=== PATIENT | male | born 1980 | race Caucasian/White ===

== ENCOUNTER 2023-02-21 12:31 | Emergency (ER) | payer OTHER, SELFPAY ==
--- NOTE | ~2023-02-21 | US_ITS ---
EXAMINATION: US scrotum doppler DATE: 02/21/2023 13:58 INDICATION: Right testicular pain. TECHNIQUE: Grayscale and Doppler ultrasound images of the testes were obtained. COMPARISON: None. FINDINGS: The right testis measures 3.8 x 2.6 x 3.4 cm. The left testis measures 4.0 x 2.8 x 2.3 cm. There is normal vascular flow to both testes. The right epididymis is normal with normal vascular maurizio w. The left epididymis is normal with normal vascular flow. There is no varicocele or hydrocele. IMPRESSION: 1. Normal testes. Reviewed, dictated and finalized at location A. IMPRESSION: 1. Normal testes.
--- NOTE | ~2023-02-21 | CT_ITS ---
EXAMINATION: CT abdomen pelvis wo con DATE: 02/21/2023 14:49 INDICATION: Right abdominal pain. Nausea and vomiting. TECHNIQUE: Computed tomography (CT) of the abdomen and pelvis was performed without intravenous contr ast. Automated exposure control and iterative reconstruction technique were employed. The dose-length product was 361.35 mGy-cm. COMPARISON: None. FINDINGS: The visualized portions of the lung bases demonstrate mild atelectasis. No pleural effusion . The heart size is normal. No pericardial effusion. The liver, gallbladder, spleen, pancreas, adrena l glands, and kidneys are normal. There is no urolithiasis. There are no dilated loops of bowel. The appendix is normal. There is prominent fat in the inguinal canals that may be hernias. There are no p athologically enlarged lymph nodes. There is no free intraperitoneal fluid. There is moderate lumbar spondylosis. There is a chronic compression fracture of T11. IMPRESSION: 1. Prominent fat in the inguinal canals that may be hernias. Reviewed, dictated and finalized at location A.
[2023-02-21 12:32] VITALS: BP 126/79; PULSE 82; RESP 16; TEMP 36.9; O2SAT 98
[2023-02-21 13:17] LABS: Basophils Percent Auto 0.7 % (0.2-1.2); Eosinophils Absolute Auto 0.1 K/mm3 (0-0.3); Eosinophils Percent Auto 1.7 % (0-4.4); Hematocrit 45.4 % (42.0-52.0); Hemoglobin 15.7 g/dL (14.0-18.0); Immature Granulocyte Absolute 0.02 K/mm3 (0.00-0.031); Immature Granulocyte Percent A 0.3 % (0-0.5); Lymphocytes Absolute Auto 2.02 K/mm3 (0.9-3.2); Lymphocytes Percent Auto 35.3 % (18.3-44.2); Mean Corpuscular HGB Conc 34.6 g/dl (32-36); Mean Corpuscular Hemoglobin 31.3 pg (26-34); Mean Corpuscular Volume 90.4 fl (80-100); Mean Platelet Volume 8.8 fl (7.4-10.4); Monocytes Absolute Auto 0.3 K/mm3 (0.1-0.6); Monocytes Percent Auto 5.6 % (2.6-8.5); Neutrophils Absolute Auto 3.2 K/mm3 (1.3-6.7); Neutrophils Percent Auto 56.4 % (45.5-73.1); Platelet Count Result 240 k/mm3 (150-375); Red Blood Count 5.02 M/mm3 (4.6-6.20); Red Cell Distribution Width 12.5 % (11.5-14.5); White Blood Count 5.7 K/mm3 (4.5-10.0)
[2023-02-21 13:31] LABS: Alanine Aminotransferase 21 U/L (6-50); Albumin Level 4.5 g/dL (3.5-5.1); Alkaline Phosphatase 45 U/L (38-126); Anion Gap 7 mmol/L (8-16); Aspartate Amino Transferase 28 U/L (17-59); Bilirubin,Total 0.4 mg/dL (0.2-1.3); Blood Urea Nitrogen 10 mg/dL (9-20); Carbon Dioxide 28 mmol/L (22-30); Chloride 104 mmol/L (98-107); Estimated CRCL calculation 78 ml/min; Estimated Glomerular Filt Rate > 60; Glucose 124 mg/dL (65-110); Lipase 77 U/L (23-300); Potassium 4.1 mmol/L (3.4-5.0); Sodium 139 mmol/L (137-145)
[2023-02-21 13:35] VITALS: BP 126/92; O2SAT 99
[2023-02-21 13:36] VITALS: O2SAT 98
--- NOTE | 2023-02-21 13:42 | ED.ABDPAIN ---
HPI - Abdominal Pain General Chief Complaint: Abdominal Pain Stated Complaint: abdominal pain-testicle pain Time Seen by Provider: 02/21/23 13:13 History of Present Illness HPI narrative: Pt presents with right testicular pain radiating into back on right for 5 days. Pt denies urinary symptoms or discharge. Pt had CT at [facility] with no definitive diagnosis and UA at PCP office but no ultrasound of testicle. Related Data Allergies Allergy/AdvReac Type Severity Reaction Status Date / Time codeine Allergy Hives Verified 02/21/23 13:10 Review of Systems Review of Systems: All systems reviewed & are unremarkable except as noted in HPI and below Exam Const: General: healthy appearing Nutritional Appearance: well nourished Orientation/consciousness: patient oriented x3 Limitations: no limitations Eyes: Conjunctivae: conjunctivae normal EOM: EOMs intact bilaterally Neck: Neck: normal visual inspection Chest: Chest palpation & inspection: normal inspection of the chest Resp: Effort & Inspection: normal respiratory effort Auscultation: clear to auscultation bilaterally Cardio: Rate: regular rate Rhythm: regular rhythm GI: GI Palp: Yes Soft to palpation Auscultation: normal bowel sounds : Penis: Yes normal penis Scrotum: scrotal swelling on the right (fullness in right inguinal canal into scrotum) Testes: testicular tenderness Skin: General skin exam: normal color Rashes: no rashes Wounds: no wounds Neuro: General: patient oriented x3, moves all extremities and no focal motor deficits Cranial nerves: Yes Nystagmus not present Speech: normal speech Extrem: General: normal to inspection and no clubbing, cyanosis or edema Psych: Mental Status: mental status grossly normal Affect: normal affect Attitude: cooperative Course Vital Signs Vital signs: Vital Signs Temperature 98.5 F 02/21/23 12:32 Pulse Rate 82 02/21/23 12:32 Respiratory Rate 16 02/21/23 12:32 Blood Pressure 126/79 02/21/23 12:32 Pulse Oximetry 98 02/21/23 12:32 Oxygen Delivery Room Air 02/21/23 12:32 Temperature 98.5 F 02/21/23 12:32 Pulse Rate 63 02/21/23 16:45 Respiratory Rate 16 02/21/23 16:45 Blood Pressure 122/94 H 02/21/23 16:45 Pulse Oximetry 98 02/21/23 16:45 Oxygen Delivery Room Air 02/21/23 12:32 MDM - Abdominal Pain MDM Narrative Medical decision making narrative: Pt has pain in right testicle and right flank for 5 days. labs fine, ua neg, testicular sono normal CT abd/pelvis shows some fat in inguinal canal likely hernia Lab Data Attestation: I reviewed the patient's lab results. 02/21/23 13:11 02/21/23 13:11 Labs: Lab Results 02/21/23 02/21/23 Range/Units 13:11 15:34 WBC 5.7 (4.5-10.0) K/mm3 RBC 5.02 (4.6-6.20) M/mm3 Hgb 15.7 (14.0-18.0) g/dL Hct 45.4 (42.0-52.0) % MCV 90.4 (80-100) fl MCH 31.3 (26-34) pg MCHC 34.6 (32-36) g/dl RDW 12.5 (11.5-14.5) % Plt Count 240 (150-375) k/mm3 MPV 8.8 (7.4-10.4) fl Immature Gran % (Auto) 0.3 (0-0.5) % Neut % (Auto) 56.4 (45.5-73.1) % Lymph % (Auto) 35.3 (18.3-44.2) % Edwards % (Auto) 5.6 (2.6-8.5) % Eos % (Auto) 1.7 (0-4.4) % Baso % (Auto) 0.7 (0.2-1.2) % Lymph # (Auto) 2.02 (0.9-3.2) K/mm3 Edwards # (Auto) 0.3 (0.1-0.6) K/mm3 Eos # (Auto) 0.1 (0-0.3) K/mm3 Baso # (Auto) 0.0 (0.0-0.1) K/mm3 Abs Immat Gran (auto) 0.02 (0.00-0.031) K/mm3 Absolute Neuts (auto) 3.2 (1.3-6.7) K/mm3 Absolute Nucleated RBC 0.0 (0.0-0.012) K/mm3 Nucleated RBC % 0.0 (0.0-0.2) % Sodium 139 (137-145) mmol/L Potassium 4.1 (3.4-5.0) mmol/L Chloride 104 (98-107) mmol/L Carbon Dioxide 28 (22-30) mmol/L Anion Gap 7 L (8-16) mmol/L BUN 10 (9-20) mg/dL Creatinine 1.00 (0.7-1.3) mg/dL Estim Creat Clear Calc 78 ml/min Estimated GFR > 60 (59 - ) Glucose 124 H (65-110) mg/dL Calcium 9.0 (8.4-10.2
[2023-02-21] MEDS: ONDANSETRON INJ 4 MG/2 ML VIAL IV PUSH (13:52)
[2023-02-21 13:54] VITALS: O2SAT 99
[2023-02-21] MEDS: fentaNYL CITRATE INJ (*CRX) 100 MCG/2 ML VIAL 50 MCG IV PUSH (13:54)
[2023-02-21 15:41] LABS: Appearance Urine Clear (Clear); Bilirubin Urine Negative (Negative); Blood Urine Negative (Negative); Color Urine Yellow (Yellow); Glucose Urine UA Negative (Negative); Ketones Urine Negative (Negative); Leukocyte Esterase Ur Negative LEU/UL (Negative); Nitrate Urine Negative (Negative); Protein Urine Negative (Negative); Specific Grav Ur 1.013 (1.001-1.035); pH Urine 6.5 (5.0-9.0)
[2023-02-21 15:47] LABS: Add Urine Microscopic? NO
[2023-02-21 16:45] VITALS: BP 122/94; PULSE 63; RESP 16; O2SAT 98
== END 2023-02-21 16:46 | disposition home or self-care (01) ==
PROVIDERS: Emergency Provider Emergency Medicine; PCP Internal Medicine Infectious Disease
DX: K40.90 Unilateral inguinal hernia, without obstruction or gangrene, not specified as recurrent (principal)
CPT/HCPCS: 36415; 74176; 76870; 80053; 81003; 83690; 85025; 93976; 96374; 96375; 99284; J2405; J3010

== ENCOUNTER 2023-03-08 02:21 | Day surgery (SDC) | payer OTHER, SELFPAY ==
[2023-02-27 12:43] VITALS: BMI 26.2
--- NOTE | 2023-02-27 12:45 | PC.NURSE ---
Report to the Outpatient Waiting Room, entrance under the green pavilion located off [facility], at time _0815_ on date _[id number]_. Planned Procedure Time: _1015_. Time changes happen often and if your time is changed the preop area will call you the afternoon before. - You and your visitor will be asked to self-screen and do not enter if you have any COVID symptoms. - A mask is optional within the hospital at this time. Patients may have clear liquids (water, carbonated beverages, clear teas, apple juice) until 3 hours prior to surgery with a maximum of 20 ounces. - No food from midnight until time of surgery Take the following medications with a SIP of water the morning of surgery: ___Cymbalta, Buspirone and Gabapentin DO NOT STOP ANY OF YOUR OTHER PRESCRIPTION MEDICATIONS PRIOR TO SURGERY ?EXCEPT THE FOLLOWING Medications to discontinue per physician None Date to take last dose Please no make-up, nail korean, hairspray, perfume, deodorant, or body powder the day of surgery. No jewelry (including any body piercings) or valuables the day of surgery, leave them at home. Please take a shower or bath the night before, or the morning of, surgery with an antibacterial soap. Wear comfortable, loose fitting clothing. - Jewelry must be removed prior to entering the operating room. Rings and piercings that are not removed may be cut off. - The hospital will not accept responsibility for valuables. - Please leave all valuables, including medications, at home the day of surgery. If you are going home after surgery, a licensed truck driver teamster must drive you home. - NO public transportation without another adult if you receive anesthesia. - We recommend that an adult stay with you for 24 hours following discharge. - We also recommend that you do not drive, make important decision, drink alcoholic beverages, or take any drugs that were not prescribed by your health care provider for at least 24 hours after your discharge time. Follow any additional instructions given to you from your surgeon. If you or anyone in your household have experienced Covid symptoms in the past week, please notify your surgeon or the nurse liaison at the phone number below for possible testing. Telephone instructions given to __Patient___and asked if any additional questions and then verbalized understanding. Patient advised to call surgeon office or pre surgery nurse liaison [phone] if any additional questions.
[2023-03-08] MEDS: ACETAMINOPHEN 500 MG TABLET 1000 MG PO (08:22)
[2023-03-08 08:32] VITALS: BP 123/78; PULSE 67; RESP 16; TEMP 36.6; O2SAT 100
[2023-03-08] MEDS: LACTATED RINGERS 1,000 ML 30 ML IV CONT (08:52)
[2023-03-08] MEDS: KETOROLAC 15 MG/ML VIAL (*BKC) IV PUSH (08:54)
== END 2023-03-08 11:37 | disposition home or self-care (01) ==
PROVIDERS: PCP Nurse Practitioner Family; Visit Provider Surgery
DX: K40.90 Unilateral inguinal hernia, without obstruction or gangrene, not specified as recurrent (principal); I10 Essential (primary) hypertension; Z87.891 Personal history of nicotine dependence
CPT/HCPCS: 99213; A9270; G0463; J1885; J7120

== ENCOUNTER 2023-03-15 00:58 | Day surgery (SDC) | payer OTHER, SELFPAY ==
[2023-03-08 14:57] VITALS: BMI 25.8
--- NOTE | 2023-03-08 14:58 | PC.NURSE ---
Report to the Outpatient Waiting Room, entrance under the green pavilion located off [facility], at time 0800 on date 03/15/23. Planned Procedure Time: 1000. Time changes happen often and if your time is changed the preop area will call you the afternoon before. - You and your visitor will be asked to self-screen and do not enter if you have any COVID symptoms. - A mask is optional within the hospital at this time. Patients may have clear liquids (water, carbonated beverages, clear teas, apple juice) until 3 hours prior to surgery with a maximum of 20 ounces. - No food from midnight until time of surgery Take the following medications with a SIP of water the morning of surgery: BUSPIRONE, DULOXETINE, GABAPENTIN DO NOT STOP ANY OF YOUR OTHER PRESCRIPTION MEDICATIONS PRIOR TO SURGERY ?EXCEPT THE FOLLOWING Medications to discontinue per physician: N/A Date to take last dose: N/A Please no make-up, nail setswana, hairspray, perfume, deodorant, or body powder the day of surgery. No jewelry (including any body piercings) or valuables the day of surgery, leave them at home. Please take a shower or bath the night before, or the morning of, surgery with an antibacterial soap (HIBICLENS). Wear comfortable, loose fitting clothing. - Jewelry must be removed prior to entering the operating room. Rings and piercings that are not removed may be cut off. - The hospital will not accept responsibility for valuables. - Please leave all valuables, including medications, at home the day of surgery. If you are going home after surgery, a licensed charter and tour bus driver must drive you home. - NO public transportation without another adult if you receive anesthesia. - We recommend that an adult stay with you for 24 hours following discharge. - We also recommend that you do not drive, make important decision, drink alcoholic beverages, or take any drugs that were not prescribed by your health care provider for at least 24 hours after your discharge time. Follow any additional instructions given to you from your surgeon. If you or anyone in your household have experienced Covid symptoms in the past week, please notify your surgeon or the nurse liaison at the phone number below for possible testing. Telephone instructions given to WILFREDO CATALAN and asked if any additional questions and then verbalized understanding. Patient advised to call surgeon office or pre surgery nurse liaison [phone] if any additional questions.
[2023-03-15] VITALS (10 sets, daily range): BP systolic 107–138; BP diastolic 63–94; PULSE 64–85; RESP 10–16; TEMP 36.1–36.7; O2SAT 96–100
[2023-03-15] MEDS: ACETAMINOPHEN 500 MG TABLET 1000 MG PO (08:18)
[2023-03-15] MEDS: LACTATED RINGERS 1,000 ML 30 ML IV CONT ×2 (08:30→11:53)
[2023-03-15] MEDS: KETOROLAC 15 MG/ML VIAL (*BKC) IV PUSH ×2 (08:31→11:24)
--- NOTE | 2023-03-15 09:08 | WPDANESEPPF ---
Anes - Initial Pre Proc Eval Procedure: Operation Date: 03/15/23 10:00 Proposed Procedures p Open Right Inguinal Hernia Repair with Mesh - Juan Manuel Hernandez MD Date/Time: 03/15/23 09:08 Surgeon: Juan Manuel Hernandez MD Pre Op Diagnosis: Right inguinal hernia Patient Data Age: 42 Gender: M Height: 1.68 m Weight: 72.9 kg Last Vital Signs Temp 36.1 C L 03/15/23 08:12 Pulse 68 03/15/23 08:12 Resp 16 03/15/23 08:12 BP 107/74 03/15/23 08:12 Pulse Ox 97 03/15/23 08:12 O2 Del Method Room Air 03/15/23 08:12 Allergies Allergy/AdvReac Type Severity Reaction Status Date / Time codeine Allergy Intermediate Hives Verified 03/15/23 08:14 Home Medications Medication Instructions Recorded Confirmed Type duloxetine 30 mg capsule,delayed 30 mg PO DAILY 02/23/23 03/15/23 History release (Cymbalta) gabapentin 300 mg capsule 300 mg PO DAILY 02/23/23 03/15/23 History omeprazole 20 mg capsule,delayed 20 mg PO DAILY 02/23/23 03/15/23 History release trazodone 100 mg tablet 100 mg PO QHS PRN Insomnia 02/23/23 03/15/23 History buspirone 30 mg tablet 30 mg PO BID 02/27/23 03/15/23 History Patient hx anesthesia problems: none Family hx anesthesia problems: none Results Review: All pre-operative results and documents have been reviewed as part of the pre-operative evaluation. [facility] Past Medical History Medical History Hypertension Kidney stone Neuropathy Smoker Family History Family History Other Hypertension Social History Social History Smoking packs per day: 1.5 Smoking cigarettes per day: 30.0 Years smoked: 7 Smoking pack-years: 10.50 Smoking status: Former smoker Tobacco type: cigarettes Smoking end date: 09/29/22 Alcohol intake: never Alcohol use details: Socially Substance use: current Substance use type: marijuana Living arrangements: with family Spiritual care concerns: No Anes - Eval Final PreProcedure Day of Procedure 03/15/23 09:08 Patient weight: overweight Heart: regular rate and rhythm Lungs: clear to auscultation Airway: Mallampati scale class II Neurological: alert and oriented Last oral intake: >/= 8 hours ASA classification: III Emergent: no Anesthetic plan: proceed Anesthesia type and monitoring: general LMA and standard monitoring Results Review: All pre-operative results and documents have been reviewed as part of the pre-operative evaluation. Informed Consent: The patient's anesthetic plan and its attendant risks and benefits were discussed with the patient/family/POA. Questions were solicited and answers provided to the satisfaction of the patient/family/POA.
--- NOTE | 2023-03-15 09:54 | WPDHPUPDATE1 ---
History and Physical Update Update Date/Time: 03/15/23 09:54 History and Physical has been reviewed, including an updated exam of the patient. There are NO changes in the patient's condition. Risks, benefits, and alternatives have been discussed and questions answered. Patient agrees to proceed with procedure.
[2023-03-15] MEDS: ceFAZolin 2 GM/D5W 50 ML 2 GM/50 ML BAG IVPB (10:02)
[2023-03-15] MEDS: LIDO 1%/EPINEPHRINE 1:100,000 50 ML VIAL INFILTRATE (10:28)
[2023-03-15] MEDS: BUPivacaine HCL 0.5% 10 ML AMP 30 ML INFILTRATE (10:30)
--- NOTE | 2023-03-15 11:57 | W.PM.PROC2 ---
Procedure Note - Detailed Date of Procedure 03/15/23 Pre-op Diagnosis Right inguinal hernia Post-op Diagnosis Same (Indirect right inguinal hernia) Procedure Performed Open right inguinal hernia repair with UHS mesh. Surgeon Juan Manuel Hernandez MD Anesthesia General Indications Patient is a 42 year white male who did some heavy lifting and started having pain in the right groin region. On examination has a small reducible right inguinal hernia. Due to his symptoms of severe pain he presents now for an open right inguinal hernia repair with mesh reinforcement. Findings Small indirect right inguinal hernia with cord lipoma. Description of Procedure After informed consent was obtained patient brought to the operating room was placed supine position and then general LMA anesthesia was administered. The bilateral groin regions and scrotum were prepped and draped in usual sterile fashion. A time-out was then performed correctly identifying the patient as well as procedure to be performed verifying the site marking. He was given Ancef for perioperative IV antibiotics. Then started by making a transverse incision in the right groin region about 1 fingerbreadth above the palpated right pubic tubercle. Dissection was then carried down through the subcutaneous tissues with electrocautery and Olinda's fascia was divided. The external oblique aponeurosis was identified and external ring was palpated. I then opened the external oblique aponeurosis along the direction of its fibers with a scalpel and then opened completely out through the external ring utilize electrocautery. The ilioinguinal nerve was identified was dissected out and then divided proximally the entered the internal oblique muscle. The distal portion was divided resected as well. This was done the mesh would lay right on top of the nerve and the risk of nerve entrapment into the mesh was significant. I then proceeded to dissect the external oblique aponeurosis away from the internal oblique muscle fibers and the cord structures. This abdominal combination electrocautery and blunt finger dissection. I then isolated the cord structures at the pubic tubercle with blunt finger dissection placed a Gene drain around cord structures. I then further divided cremasteric muscle fibers to further mobilize the cord and then I inspected the floor of the inguinal canal. The floor was intact but there was a small amount of thickening in the floor. I then explored the spermatic cord identified the vas deferens and testicular vessels. These were preserved without injury. I identified a cord lipoma which was coming out through slightly dilated internal ring. I then dissected out the cord lipoma off the level internal ring and then clamped it and resected the distal portion of cord lipoma discarded. The cord lipoma remnant was ligated with a 3-0 Vicryl suture. I then proceeded to place retractors in through slightly dilated internal ring. The inferior epigastric vessels were retracted inferiorly on superior to the retractor. Then with blunt finger and sponge dissection I dissected out the preperitoneal space. The digit was a large piece of Ultrapro hernia system mesh for the repair. Underlay portion of mesh was placed through the dilated internal ring into the preperitoneal space deep to the inferior epigastric vessels. It was then spread out widely to cover the whole myopectineal orifice. The cylindrical a connecting portion of mesh can through the internal ring in the overlay portion of mesh was placed over the floor of the inguinal canal. The overlay mesh was then secured to the tissues around the pubic tubercle with a 2-0 Vicryl suture. Medially the overlay mesh was further secured to the internal oblique muscle fibers and laterally was secured to the shelving edge of the external oblique aponeurosis. The tail of the mesh was then cut to accommodate the cord structures and then the tail was reapproximated uti
[2023-03-15] MEDS: fentaNYL CITRATE INJ (*CRX) 100 MCG/2 ML VIAL 25 MCG IV PUSH ×3 (12:22→12:49)
[2023-03-15] MEDS: ONDANSETRON INJ 4 MG/2 ML VIAL IV PUSH (12:43)
[2023-03-15] MEDS: oxyCODONE HCL (*CRX) 5 MG TAB IR PO (13:45)
== END 2023-03-15 14:20 | disposition home or self-care (01) ==
PROVIDERS: PCP Nurse Practitioner Family; Visit Provider Surgery
PROC: (CPT 49505; principal; 2023-03-15 10:00)
DX: K40.90 Unilateral inguinal hernia, without obstruction or gangrene, not specified as recurrent (principal); I10 Essential (primary) hypertension; G62.9 Polyneuropathy, unspecified; Z87.891 Personal history of nicotine dependence; F12.90 Cannabis use, unspecified, uncomplicated
CPT/HCPCS: 49505; A9270; C1781; J0690; J1100; J1170; J1885; J2250; J2405; J2704; J3010; J7120

== ENCOUNTER 2023-10-25 17:28 | Emergency (ER) | payer OTHER, SELFPAY ==
--- NOTE | ~2023-10-25 | CT_ITS ---
EXAMINATION: CT lumbar spine wo con DATE: 10/25/2023 22:39 INDICATION: Low back pain. TECHNIQUE: Computed tomography (CT) of the lumbar spine was performed without intravenous contrast. A utomated exposure control and iterative reconstruction technique were employed. The dose-length produ ct was 377.48 mGy-cm. COMPARISON: Lumbar spine radiographs 12/27/2004 FINDINGS: There is 10 degrees levoscoliosis of lumbar spine. There is a chronic compression fracture of T11 with 1/5 loss of height. There is mildly decreased disc height at L1-L2, L2-L3, and L3-L4, sev erely decreased disc height at L4-L5, and moderately decreased disc height at L5-S1. The following di sc levels are specifically discussed: L1-L2: The disc is bulging. There is mild bilateral facet joint osteoarthritis. There is mild bilater al neural foraminal stenosis. There is mild central canal stenosis. L2-L3: The disc is bulging. There is mild bilateral facet joint osteoarthritis. There is mild bilater al neural foraminal stenosis. There is mild central canal stenosis. L3-L4: The disc is bulging. There is mild right and moderate left facet joint osteoarthritis. There i s mild bilateral neural foraminal stenosis. There is mild central canal stenosis. L4-L5: The disc is bulging. There is mild bilateral facet joint osteoarthritis. There is moderate bryn ateral neural foraminal stenosis. There is mild central canal stenosis. L5-S1: The disc is bulging. There is mild bilateral facet joint osteoarthritis. There is mild right n eural foraminal stenosis. There is mild central canal stenosis. IMPRESSION: 1. Severe lumbar spondylosis. 2. Lumbar levoscoliosis. Reviewed, dictated and finalized at location E. [employer]
[2023-10-25 17:58] VITALS: BP 129/71; PULSE 77; RESP 17; TEMP 37.1; O2SAT 100
--- NOTE | 2023-10-25 22:30 | ED.BACK ---
HPI - Back Pain/Injury General Chief Complaint: Back Pain/Injury Stated Complaint: pain on 5mo old incision site radiating to back Time Seen by Provider: 10/25/23 21:39 History of Present Illness HPI Narrative: 42 y/o M reports for evaluation for acute on chronic low back pain. patient states approximately 1 year ago, he was on a ladder when he fell 8 ft after losing his balance. States he landed on his butt and since then has had low back pain. He has never had imaging of his back since then. He states over the past 2 months, the pain is significantly worsened and now radiates down his right buttock and down the right leg. He states proximally week ago he was walking at [employer] when he felt his right leg give out. He states it feels like there are intermittent numbness in his right leg. He also had a right inguinal hernia repair done by Dr. Hernandez on 03/15/2023. Patient states he has had numbness surrounding the incision site since the surgery. CT follow-up with Dr. Denson and was told that is normal and likely secondary to cutting a nerve. the patient denies saddle anesthesia, bowel or bladder incontinence. He does report bladder retention for multiple years which he is not associating with his back pain. He denies dysuria, hematuria, abdominal pain, nausea vomiting, fever, use of steroids or immunosuppressants, history of cancer. Related Data Home Medications Medication Instructions Recorded Confirmed duloxetine 30 mg capsule,delayed 30 mg PO DAILY 02/23/23 07/26/23 release (Cymbalta) gabapentin 300 mg capsule 300 mg PO DAILY 02/23/23 07/26/23 omeprazole 20 mg capsule,delayed 20 mg PO DAILY 02/23/23 07/26/23 release trazodone 100 mg tablet 100 mg PO QHS PRN Insomnia 02/23/23 07/26/23 buspirone 30 mg tablet 30 mg PO BID 02/27/23 07/26/23 Allergies Allergy/AdvReac Type Severity Reaction Status Date / Time codeine Allergy Intermediate Hives Verified 07/26/23 13:25 Review of Systems Review of Systems: CONSTITUTIONAL: Denies fever, chills, or sweats. EYES: Denies visual changes, redness, or discharge. ENT: Denies rhinorrhea, congestion, sore throat, or otalgia. CARDIOVASCULAR: Denies chest pain, palpitations, or edema. RESPIRATORY: Denies cough or dyspnea. GASTROINTESTINAL: Denies abdominal pain, nausea, vomiting, or diarrhea. GENITOURINARY: Denies dysuria or hematuria. SKIN: Denies rash or itching. MUSCULOSKELETAL: See HPI NEUROLOGIC: Denies headache, numbness, or weakness. PSYCHIATRIC: Denies anxiety or depression. [facility] Past Medical History Medical History Hypertension Kidney stone Neuropathy Smoker Surgical History Surgical History H/O right inguinal hernia repair 03/15/23 Open right inguinal hernia repair with UHS mesh. Family History Family History Other Hypertension Social History Social History Smoking packs per day: 1.5 Smoking cigarettes per day: 30.0 Years smoked: 7 Smoking pack-years: 10.50 Smoking status: Former smoker Tobacco type: cigarettes Smoking end date: 09/29/22 Alcohol intake: never Alcohol use details: Socially Substance use: current Substance use type: marijuana Living arrangements: with family Spiritual care concerns: No Exam Narrative: GENERAL: Well-appearing, well-nourished, and in no acute distress. HEAD: Normocephalic, atraumatic. EYES: PERRLA and EOMI. ENT: Nares clear, no rhinorrhea or epistaxis. Mucous membranes moist. NECK: Supple. BACK: midline lumbar spinous tenderness without step-offs or deformities. Tenderness to the right paraspinous muscles, right SI, right buttock, no overlying skin changes. positive right straight leg raise. Negative left straight leg raise CHEST: Clear to auscultation. No respiratory distress. HEART: Regular rate and rh
[2023-10-25] MEDS: KETOROLAC 30 MG/ML VIAL (*BKC) IM (23:37)
[2023-10-25] MEDS: LIDOCAINE 5% PATCH 1 PATCH TRANSDERM (23:37)
[2023-10-26 01:07] VITALS: BP 121/74; PULSE 73; RESP 15; O2SAT 100
== END 2023-10-26 01:09 | disposition home or self-care (01) ==
PROVIDERS: Emergency Provider Physician Assistant; PCP Nurse Practitioner Family
DX: M54.16 Radiculopathy, lumbar region (principal); I10 Essential (primary) hypertension; Z87.442 Personal history of urinary calculi
CPT/HCPCS: 72131; 96372; 99284; A9270; J1885